=== PATIENT | female | born 1975 | race Caucasian/White ===

== ENCOUNTER 2016-10-29 02:18 | Emergency (ER) | payer BC, MEDICAID ==
[2016-10-29] MEDS ORDERED: HYDROCODONE/ACETAMINOPHEN 5-325 MG 6 TAB/DSPK PO PRN (03:08)
[2016-10-29] MEDS ORDERED: PREDNISONE 20 MG TABLET PO ONE (03:08)
--- NOTE | 2016-10-29 03:08 | ER Document Report ---
ED ENT - General Mode of Arrival: Ambulatory Information source: Patient TRAVEL OUTSIDE OF THE [place] IN LAST 30 DAYS: No - HPI Patient complains to provider of: Throat problem Onset: Other - Refer to HPI notes Associated symptoms: Sore throat, Swollen glands Similar symptoms previously: No Recently seen / treated by doctor: No - General Chief Complaint: Sore Throat Stated Complaint: MOUTH PAIN/SWELLING Time Seen by Provider: 10/29/16 02:56 Notes: Patient is a 41-year-old female presents emergency department for sore throat. Patient states she woke up Tuesday morning with some postnasal drip and soreness to her throat. Patient saw her primary care physician, Dr. Catalan, and had a negative rapid strep test. Patient was given amoxicillin and a dental rinse to help with her symptoms. Patient states that her soreness has become worse and she also has some sores to the inside of her mouth and tongue now. Patient states she also has some soreness in her neck going into her ears. Patient has had some low-grade fevers but has been taking Tylenol. Patient has no known drug allergies. (QUENTIN ZEE) - Related Data Allergies/Adverse Reactions: No Known Drug Allergies Allergy (Verified 10/28/11 14:50) Past Medical History - General Information source: Patient - Social History Smoking Status: Never Smoker Cigarette use (# per day): No Chew tobacco use (# tins/day): No Smoking Education Provided: No Frequency of alcohol use: None Drug Abuse: None Family History: None Patient has suicidal ideation: No Patient has homicidal ideation: No Pulmonary Medical History: Reports: Hx Bronchitis - Chronic as a child GI Medical History: Reports: Hx Gastroesophageal Reflux Disease, Hx Irritable Bowel - Immunizations Immunizations up to date: Yes Hx Diphtheria, Pertussis, Tetanus Vaccination: Yes Review of Systems - Review of Systems Constitutional: No symptoms reported EENT: See HPI, Throat pain, Mouth pain Cardiovascular: No symptoms reported Respiratory: No symptoms reported Gastrointestinal: No symptoms reported Genitourinary: No symptoms reported Female Genitourinary: No symptoms reported Musculoskeletal: No symptoms reported Skin: No symptoms reported Hematologic/Lymphatic: No symptoms reported Neurological/Psychological: No symptoms reported -: Yes All other systems reviewed and negative Physical Exam - Vital signs Interpretation: Normal - Vital signs Vitals: Temp Pulse Resp BP Pulse Ox 98.4 F 78 18 127/71 H 100 07/28/17 02:19 10/29/16 02:19 10/29/16 02:19 10/29/16 02:19 10/29/16 02:19 - Notes Notes: GENERAL: Alert, interacts well. No acute distress. HEAD: Normocephalic, atraumatic. EYES: Appear normal. Pupils equal, round, and reactive to light. ENT: Moist mucus membranes, tongue midline. viral appearing ulcers to the mouth and tongue. TM's intacts are somewhat retracted. NECK: Full range of motion. Supple. Trachea midline. LUNGS: Clear to auscultation bilaterally, no wheezes, rales, or rhonchi. No respiratory distress. HEART: Regular rate and rhythm. No murmurs, gallops, or rubs. ABDOMEN: Soft, non-tender. Non-distended. Normal bowel sounds. EXTREMITIES: Moves all 4 extremities spontaneously. Normal strength. No edema. NEUROLOGICAL: Alert and oriented x3. Normal speech. No focal neurological deficits. GSC 15. PSYCH: Normal affect, normal mood. SKIN: Warm, dry, normal turgor. No rashes or lesions noted. (QUENTIN ZEE) Discharge - Discharge Clinical Impression: Viral stomatitis Condition: Stable Disposition: HOME, SELF-CARE Additional Instructions: Hand, Foot and Mouth Disease: Hand, Foot, and Mouth Disease (HFM) is caused by a virus. Symptoms include small ulcers in the mouth and spots or blisters on the palms, feet, or buttocks. A low grade fever for 2-3 days is common. The skin and mouth sores may last for 7-10 days. Hand, Foot, and Mouth Disease is contagious until one day after the fever is gone. Most of the time, symptoms are mild. If fluids are avoided due to painful mouth sores, dehydration may result. You can use oral anesthetics (Oragel, Anbesol) or liquid Benadryl to numb mouth sores. Use acetaminophen for pain and fever. Use cool liquids and foods that are easily chewed. Avoid citrus juices and spicy foods. To prevent spread of the virus, use good handwashing. Shared toys should be cleaned with disinfectant. Clean the toilets, sinks, and counter surfaces in bathrooms. Launder clothing in hot water. Return if there is a significant change for the worse, including high fever , severe pain, or dehydration. Signs of dehydration in a child can include progressive weakness, apathy, irritability, or no diaper wetting for over eight hours. //////////////////////////////////////////////////////////////////////////////// //////////////////////////////////////////////////////////////////////////////// ////////////////// You appear to have a viral infection causing the ulcerations on your tongue and throat. This may be dhio-dfae-llu-mouth disease, or a similar viral illness. Start the prednisone as prescribed on Tuesday morning. Drink plenty of fluids and get plenty of rest. Follow-up with your doctor if not improving over the next few days. RETURN TO THE EMERGENCY ROOM IF ANY NEW OR WORSENING SYMPTOMS. Prescriptions: Hydrocodone/Acetaminophen [[place] 5-325 mg Tablet] 1 tab PO Q4 PRN #15 tablet PRN Reason: Prednisone [Deltasone 10 mg Tablet] 10 mg PO ASDIR PRN #15 tablet PRN Reason: Scribe Attestation: 10/29/16 03:13 I personally performed the services described in the documentation, reviewed and edited the documentation which was dictated to the scribe in my presence, and it accurately records my words and actions. (XAVIER JARVIS) Scribe Documentation - Scribe Written by Chyna:: Chyna Morris, 10/29/2016 3:58 acting as scribe for :: Daniel
[2016-10-29 03:30] VITALS: BP 115/77
== END 2016-10-29 03:34 | disposition home or self-care (01) ==
LOC: ER 02:18 → EEVIPCON 02:18 → ER 03:34
DX: K12.1 Other forms of stomatitis (principal); B97.89 Other viral agents as the cause of diseases classified elsewhere; J02.9 Acute pharyngitis, unspecified; R50.9 Fever, unspecified
CPT/HCPCS: 99282; J7512

== ENCOUNTER → 2019-12-13 | Outpatient (CLI) | payer MEDICAID ==
--- NOTE | 2019-12-13 08:56 | WOMENS IMAGING REPORT ---
EXAM DESCRIPTION: 3D SCREENING MAMMO BILAT IMAGES COMPLETED DATE/TIME: 12/13/2019 8:39 am REASON FOR STUDY: Z12.31 ENCNTR SCREEN MAMMOGRAM FOR MALIGNANT NEOPLASM OF BREAST Z12.31 ENCNTR SCR EEN MAMMOGRAM FOR MALIGNANT NEOPLASM OF JOY COMPARISON: None. EXAM PARAMETERS: Views: Standard craniocaudal and mediolateral oblique views of each breast recorded using digital acquisition and breast tomosynthesis. Read with the assistance of CAD. .[facility] - R2 Tenant Relations Coordinator Version 9.2 LIMITATIONS: None. FINDINGS: No suspicious masses, suspicious calcifications or architectural distortion. No areas of c oncern. IMPRESSION: NEGATIVE MAMMOGRAM. BIRADS 1. BREAST DENSITY: b. There are scattered areas of fibroglandular density. BIRAD: ASSESSMENT: 1 NEGATIVE RECOMMENDATION: ROUTINE SCREENING COMMENT: The patient has been notified of the results by letter per MQSA requirements. Additional no tification policies are in place for contacting patient with suspicious or incomplete findings. Quality ID #[id number]: The [employer] recommends an annual screening mammogram for women aged 40 years or over. This facility utilizes a reminder system to ensure that all patients receive reminder letters, and/or direct phone calls for appointments. This includes reminders for routine scr eening mammograms, diagnostic mammograms, or other Breast Imaging Interventions when appropriate. Th is patient will be placed in the appropriate reminder system. TECHNICAL DOCUMENTATION: FINDING NUMBER: (1) ASSESSMENT: (1) JOB ID: [id number] 2010 [employer]- All Rights Reserved Reading location - IP/workstation name: [email or web address]
== END ==
LOC: WI 07:58
PROVIDERS: ATTEND Nurse Practitioner Family
DX: Z12.31 Encounter for screening mammogram for malignant neoplasm of breast (principal)
CPT/HCPCS: 77063; 77067